=== PATIENT | male | born 1985 | race Caucasian/White ===

== ENCOUNTER 2019-05-12 06:42 | Day surgery (SDC) | payer OTHER ==
[2019-04-25 11:07] LABS: ABSOLUTE NEUTROPHILS 7.7 thou/uL (1.4-8.2); EOSINOPHILS 2.4 % (0.0-3.0); HEMATOCRIT 45.4 % (42.0-52.0); HEMOGLOBIN 15.3 gm/dL (14.0-18.0); LYMPHOCYTES 26.1 % (24.0-44.0); MCH 31.6 pg (26.0-34.0); MCHC 33.6 g/dL (28.0-37.0); MONOCYTES 6.6 % (1.0-8.0); PLATELET COUNT 246 thou/uL (150-400); POLYS 63.9 % (36.0-66.0); RBC 4.83 mil/uL (4.50-6.00); RDW 12.9 % (10.5-14.5)
[2019-04-25 11:23] LABS: ALBUMIN 4.6 g/dL (3.4-5.0); CALCIUM 9.6 mg/dL (8.5-10.1); TOTAL BILIRUBIN 0.4 mg/dL (<0.1-1.0); TOTAL PROTEIN 7.2 g/dL (6.4-8.2)
[~2019-05-12] VITALS: Ht 175.3 cm; Wt 86.2 kg
[~2019-05-12 06:42] MED LIST: BUSPIRONE HCL5 MG PO; MELOXICAM15 MG PO; MUSCLE RELAXER PO; NEURONTIN 300M300 M2 PO
[2019-05-12 07:36] VITALS: BP 129/83
[2019-05-12] MEDS ORDERED: HYDROCODON-ACE1 EAC8 PO (11:08)
[2019-05-12] MEDS ORDERED: COLACE100 MG PO (11:09)
--- NOTE | 2019-05-12 11:16 | H ---
[facility] [place] [address] [place] [address] HISTORY AND PHYSICAL Name: FRANCIA BERGMAN Room #: 150-5 [facility] M.R.#: [id number] Admission: 05/12/19 Attend Phys: Escobar Bowman MD Discharge: Date of : 85 Report #: [id number] THIS REPORT FOR: //name// CC: Lisa Bowman DICTATED BY: Anamaria Rowland NP DATE OF SURGERY: 05/12/2019. HISTORY OF PRESENT ILLNESS: The patient is a pleasant 33-year-old man who is having problems with low back pain and left leg pain. The pain has been present for years, but worse over the last year or two. He has pain in his lower back, which radiates to the left buttock, lateral thigh and leg to the top of his left foot. The problem began spontaneously. Currently, he rates his pain 5/10. If he stands too long, it can reach 7/10. Being active and standing seems to make the problem worse. Changing positions helps. He is taking Cymbalta, gabapentin, and naproxen. He is having difficulty sleeping because of pain. He has had multiple rounds of lumbar epidural steroid injections, which he says helped him temporarily. He has also undergone physical therapy in the past, which did not help him significantly. He has had chiropractic treatment, made the problem worse. PAST MEDICAL HISTORY: He denies any previous medical history. CURRENT MEDICATIONS: Gabapentin, naproxen, buspirone, and duloxetine. PAST SURGICAL HISTORY: Denies any previous surgery. FAMILY HISTORY: Noncontributory. ALLERGIES: AVOCADO. SOCIAL HISTORY: He is employed as a manager landscape. . Smokes 1 pack per day for 13 years. Drinks alcohol 1-2 times per month. REVIEW OF SYSTEMS: A 12-point review of systems was performed and is noncontributory except that mentioned above. PHYSICAL EXAMINATION: GENERAL: Alert, pleasant, in no acute distress. HEENT: Head is normocephalic, atraumatic. SKIN: Warm and dry. MUSCULOSKELETAL: Lumbar paraspinal muscle bulk is normal, restricted range of motion of the lumbar spine. There is [id number] tenderness of the lower lumbar spine on palpation, normal range of motion of the lower extremities bilaterally. [address] [address] HISTORY AND PHYSICAL Name: FRANCIA BERGMAN Room #: [facility]5 [facility] M.R.#: [id number] Admission: 05/12/19 Attend Phys: Escobar Bowman MD Discharge: Date of : 85 Report #: [id number] EXTREMITIES: No clubbing, cyanosis or edema. NEUROLOGIC: Alert and oriented x 3, normal recent and remote memory, strength is 5/5 in the lower extremities bilaterally. Sensory was intact to light touch in the lower extremities bilaterally except for a decrease in the dorsal lateral aspect of his left foot, reflexes were present and symmetric in the lower extremities bilaterally, positive straight leg raising on the left, negative straight leg raising on the right, normal gait. IMAGING: I reviewed a lumbar MRI scan. The most significant abnormality is at L5-S1 where there is a left-sided disk bulge and foraminal narrowing on the left. ASSESSMENT AND PLAN: The problems at L5-S1 on the left are responsible for his pain. He will require a transforaminal decompression as well as hemilaminotomy to decompress both the L5 and S1 nerve root. I spoke with him about the surgery and the risks. He understands that because of the problem being present for so long, he may have residual symptoms, which could last forever or alternatively he may not improve with surgery. He understands the risk of the operation as well as the expected postoperative course. He would like to go ahead. We will make the arrangements. <ELECTRONICALLY SIGNED> By: Escobar Bowman MD 05/12/19 1116 [id number] Escobar Bowman MD /nt
[2019-05-12 12:41] VITALS: BP 129/83
--- NOTE | 2019-05-13 05:44 | O ---
[facility] [place] [address] [place] [address] OPERATIVE REPORT Name: FRANCIA BERGMAN Room #: 150-5 [facility] M.R.#: [id number] Admission: 05/12/19 Attend Phys: Escobar Bowman MD Discharge: Date of : 85 Report #: [id number] THIS REPORT FOR: //name// CC: Lisa Bowman DATE OF SERVICE: 05/12/2019 PREOPERATIVE DIAGNOSIS: Herniated lumbar disc L5-S1 transforaminal left with left lumbar radiculopathy. POSTOPERATIVE DIAGNOSIS: Herniated lumbar disc L5-S1 transforaminal left with left lumbar radiculopathy. OPERATION PERFORMED: Hemilaminotomy/ microdiscectomy and transforaminal exposure, L5-S1 left with decompression of the left L5 nerve root as well as a left S1 nerve root. The operation was done with a multimodality monitoring including EMG and SSEP. Fluoroscopy was used, microscopic dissection. SURGEON: Escobar Bowman M.D. APPLIQUE SEWER: Yadira Jones, assisted with the surgery. She assisted with exposure of the microdiscectomy, decompression as well as the closure. OPERATIVE INDICATIONS: The patient is a very pleasant 33-year-old with a long history of back and left leg pain. On the imaging studies, he was found to have compression of the L5 root in the neural foramen and I recommended lumbar microsurgery. There was also a large broad-based disc bulge at L5-S1. He understood the surgery and risks. He wished to go ahead. DESCRIPTION OF PROCEDURE: Following general endotracheal anesthesia, the patient was positioned prone on the operating room table. The lumbar region prepped and draped in standard fashion. NIKKI hose and AV impulse boots were applied for DVT prophylaxis. Microscope was draped. Fluoroscopy was draped and brought in the field. Monitoring was established. Ancef 2 grams given less than 1 hour prior to initiation of surgery using fluoroscopic guidance and midline posterior incision was made directly over the L5-S1 interspace and I dissected down through the skin and subcutaneous tissue, reflected the paraspinal muscles laterally and placed Essie microdisk retractor, brought in the microscope and remainder of surgery done with the microscope using microscopic technique. I burred down a generous hemilaminotomy and I then worked laterally with in the foramen and drilled down and trimmed ligamentum flavum away exposing the dura and the exiting S1 root as well as the L5 root as it [address] [address] OPERATIVE REPORT Name: FRANCIA BERGMAN Room #: 150-5 [facility]..#: [id number] Admission: 05/12/19 Attend Phys: Escobar Bowman MD Discharge: Date of : 85 Report #: [id number] traversed laterally. The L5 root is just within the foramen was compressed by heaped up disk, which was partly calcified and pushing on the inferior side of the nerve root. I retracted the nerve root gently and brought in the high speed drill and drilled this calcified disc material away and also entered into the disc space and removed the disc from this location. As I worked, the region became very well decompressed. I also worked medially and did incise the annulus with a #11 blade and performed discectomy with pituitary rongeurs and decompressed the takeoff of the S1 nerve root. There was a large bulging disc but it was calcified, very hard and although I did trim some of this disc, there was clearly disc that could not be removed. I irrigated copiously with antibiotic solution. I felt the roots were quite free. I removed the retractors, obtained hemostasis in the muscle and I closed the wound in layers with absorbable suture. Skin was closed with 4-0 subcuticular stitch. The operation went very well and I was quite pleased with the surgery. <ELECTRONICALLY SIGNED> By: Escobar Bowman MD 05/13/19 0544 [id number] Escobar Bowman MD /nt
== END 2019-05-12 13:15 | disposition home or self-care (01) ==
LOC: OR 06:42 → TBA 06:43 → OR 07:35
PROVIDERS: Neurological Surgery
DX: M51.17 Intervertebral disc disorders with radiculopathy, lumbosacral region (principal); M54.5 Low back pain; M79.605 Pain in left leg; F17.210 Nicotine dependence, cigarettes, uncomplicated; Z98.890 Other specified postprocedural states; Z79.899 Other long term (current) drug therapy; Z91.041 Radiographic dye allergy status
CPT/HCPCS: 50010; 50101; 50402; 50503; 50515; 50704; 50850; 51687; 51779; 53210; 54118; 55106; 56455; 56526; 56528; 56532; 56805; 62110; 62900; 70005